=== PATIENT | female | born 1950 | race Caucasian/White ===

== ENCOUNTER 2016-11-11 00:22 | Inpatient (IN) | payer OTHER ==
--- NOTE | ~2016-11-11 | HP ---
Unit #: [id number] #: [id number] Patient: TIANA DEL ANGEL [id number] [address] [place], [place] [address] [id number] I MR#: [id number] NAME: TIANA DEL ANGEL. ROOM: 471 Age: 66 Sex: F Admission Date: 11/11/2016 : 1950 Attending Physician: Gregorio Durham M.D. Primary Care Physician: April Delaney A.P.R.N. HISTORY AND PHYSICAL DIAGNOSIS ON ADMISSION Left hip fracture. HISTORY OF PRESENT ILLNESS A 66-year-old patient presented to [facility] with left hip fracture. Patient just came out of recovery and is drowsy and not able to provide history. There is no one accompanying patient. Therefore, history was obtained from ER records and staff. Patient apparently slipped while walking with cane and fell down two stairs. Has left hip pain. In the ER, patient was diagnosed with left hip fracture. As per the ER notes, there was no history of head injury. Patient was seen by ortho in consultation who has performed left hip IM nailing. As patient is drowsy, not able to obtain review of systems. PAST MEDICAL HISTORY 1. History of depression. 2. Hypertension. 3. Hypothyroidism. 4. Hyperlipidemia. 5. History of drug abuse. 6. History of L1 compression fracture in past. PAST SURGICAL HISTORY 1. Tubal ligation and reversal. 2. Hysterectomy. 3. Hemorrhoidectomy. SOCIAL HISTORY The patient smokes one pack of cigarettes per day, and she drinks alcohol. There is history of drug abuse, as per records, but unable to verify with patient currently. ALLERGIES Codeine. HOME MEDICATIONS 1. Paxil 20 mg p.o. daily. 2. Neurontin 800 mg p.o. t.i.d. 3. Synthroid 25 mcg p.o. daily. 4. Catapres 0.1 mg p.o. b.i.d. 5. Zocor 20 mg p.o. nightly. 6. Lotensin 10/12.5 mg p.o. daily. 7. Ventolin two puffs four times a day. 8. Albuterol inhaler q.4 hours p.r.n. as per medications. Unit #: [id number] #: [id number] Patient: TIANA DEL ANGEL FAMILY HISTORY Unable to obtain as patient is currently drowsy secondary to surgery. PHYSICAL EXAMINATION GENERAL: The patient is lying comfortably in bed, is not in any obvious distress. VITAL SIGNS: Temperature is 98.4, pulse 61 per minute, respiratory rate is 18 minute, blood pressure is 123/81. HEENT: Revealed no conjunctival congestion. Sclerae is nonicteric. NECK: Supple. Trachea central. RESPIRATORY: Revealed decreased breath sounds bilaterally. No wheezes or crackles. HEART: Regular rate and rhythm. S1, S2. ABDOMEN: Soft, nontender. Bowel sounds are present in all four quadrants. EXTREMITIES: Reveal trace pedal edema. NEUROLOGIC: The patient is currently drowsy but arousable. She just came out of surgery, unable to do neuro exam. Patient does not follow commands. DIAGNOSTIC STUDIES LABORATORY: Labs on admission: Patient's creatinine is 0.8, sodium 135, potassium 3.2. WBC 6.6, hemoglobin 10.9, platelet count 180,000. IMAGING: Chest x-ray revealed mild focal infiltrate right upper lobe, shallow lung expansion. Left hip x-ray revealed intertrochanteric fracture of left paroxysmal femur. CARDIOVASCULAR: EKG revealed normal sinus rhythm. There are no acute ST changes. ASSESSMENT AND PLAN A 66-year-old patient presented to [facility] with left hip fracture. 1. Left hip fracture: The patient has underwent intramedullary nailing and has just came out of recovery. She is clinically doing better. 2. Depression: Will continue home medications. 3. Hypothyroidism: Synthroid. 4. Hypertension: Will continue home medications. 5. Hyperlipidemia: Will continue Zocor. 6. Hypokalemia: Will give patient potassium. 7. Patient's deep venous thrombosis prophylaxis as per orthopedics. Dictated by Valerie Subramanian TD: 11/11/2016 12:35 JOB #: [id number] Unit #: [id number] #: [id number] Patient: TIANA DEL ANGEL HISTORY AND PHYSICAL Page 1 of 1 X Gregorio Durham MD HISTORY AND PHYSICAL
--- NOTE | ~2016-11-11 | EKG ---
PATIENT: TIANA DEL ANGEL UNIT #: [id number] Ventricular Rate: 62 BPM Atrial Rate: 62 BPM P-R Interval: 138 ms QRS Duration: 86 ms Q-T Interval: 422 ms QTC Calculation(Bezet): 428 ms P [place]: 63 degrees Calculated R [place]: 57 degrees Calculated T [place]: 52 degrees Diagnosis Line: Normal sinus rhythm Diagnosis Line: Normal ECG Diagnosis Line: When compared with ECG of 17-JUN-2016 21:54, Diagnosis Line: Nonspecific T wave abnormality, improved in Diagnosis Line: Anterior leads Diagnosis Line: Confirmed by MAO FOSTER MD ([id number]) on Diagnosis Line: 11/11/2016 10:18:10 PM INTERPRETING MD: REA
--- NOTE | ~2016-11-11 | CR150 ---
[facility] A Service of [facility] RADIOLOGY TEXT RESULTS PATIENT: TIANA DEL ANGEL LOCATION: [place] [address] : [birth year] UNIT #: [id number] AGE: [address]: Gregorio Durham MD SEX: F ORDER DR: [id number] [facility] [address] [place], [place] [address] [id number] I MR#: [id number] Acc #: [id number] NAME: TIANA DEL ANGEL. : 1950 SEX: F STUDY DATE/TIME: 11/11/2016 1:48 UNIT: CEDOF ROOM: [id number] STUDY DESCRIPTION: CR Hip Min 2 Views Lt Attending Physician: Gregorio Durham M.D. Ordering Physician: Adrian Larsen M.D. Primary Care Physician: April Delaney A.P.R.N. MEDICAL IMAGING REPORT This report is preliminary unless electronic signature is present EXAM Pelvis and left hip series, 11/11/2016. HISTORY 66-year-old female in the ED complaining of left hip pain after a fall today. TECHNIQUE AP radiograph of the pelvis and hips was obtained along with a two-view left hip series. FINDINGS The examination shows a comminuted, mildly displaced, intertrochanteric fracture of the proximal left femur with separate greater and lesser trochanter fragments and mild varus angulation. Left femoral head and neck fragment is intact. No pelvis or acetabular fracture is visible. IMPRESSION Comminuted intertrochanteric fracture of the left proximal femur. Dictated by... Sharad Bell M.D. THIS IS AN ELECTRONICALLY VERIFIED REPORT Sharad Bell M.D. at 11/11/2016 9:56 PM RGW/anjel TD: 11/11/2016 10:52 JOB #: [id number] MEDICAL IMAGING REPORT [facility] A Service of [facility] RADIOLOGY TEXT RESULTS PATIENT: TIANA DEL ANGEL LOCATION: [facility] [id number] : [birth year] UNIT #: [id number] AGE: [address]: Gregorio Durham MD SEX: F ORDER DR: Page 1 of 1 COPY
--- NOTE | ~2016-11-11 | CR72 ---
[facility] A Service of [facility] RADIOLOGY TEXT RESULTS PATIENT: TIANA DEL ANGEL LOCATION: [place] [address] : [birth year] UNIT #: [id number] AGE: [address]: Gregorio Durham MD SEX: F ORDER DR: [id number] [facility] [address] [place], [place] [address] [id number] I MR#: [id number] Acc #: [id number] NAME: TIANA DEL ANGEL : 1950 SEX: F STUDY DATE/TIME: 11/11/2016 10:10 UNIT: [facility] ROOM: [facility] STUDY DESCRIPTION: CR Chest Single View Portable Attending Physician: Gregorio Durham M.D. Ordering Physician: Mazin Perales M.D. Primary Care Physician: April Delaney A.P.R.N. MEDICAL IMAGING REPORT This report is preliminary unless electronic signature is present EXAM Portable chest INDICATIONS Shortness of air today with history of heroin use. COMPARISON 11/11/16 FINDINGS Portable view of the chest is obtained. Heart size and vascularity are normal and the lungs are clear. There are low lung volumes. IMPRESSION No active disease. Dictated by... Mick Pierre M.D. THIS IS AN ELECTRONICALLY VERIFIED REPORT Mick Pierre M.D. at 11/12/2016 7:26 AM FEL/psc TD: 11/11/2016 17:12 JOB #: [id number] MEDICAL IMAGING REPORT Page 1 of 1 COPY
--- NOTE | ~2016-11-11 | CO ---
Unit #: [id number] #: [id number] Patient: TIANA DEL ANGEL [id number] [address] [address] [id number] I MR#: [id number] NAME: TIANA DEL ANGEL. ROOM: 47 Age: 66 Sex: F Admission Date: 11/11/2016 : 1950 Attending Physician: Gregorio Durham M.D. Primary Care Physician: April Delaney A.P.R.N. Consultation Date: 11/11/2016 CONSULTATION REPORT CHIEF COMPLAINT Left hip pain. HISTORY OF PRESENT ILLNESS Ms. Del Angel is a 66-year-old female with a history of left hip pain after a fall down 2 steps at her apartment complex and unable to ambulate, who presents to [facility]. X-rays were obtained diagnosed with a left intertrochanteric femur fracture. Orthopedics was consulted for definitive management. PAST MEDICAL HISTORY Significant for depression, hypertension, hypothyroidism, COPD. PAST SURGICAL HISTORY Positive for tubal ligation and reversal, hysterectomy, hemorrhoid surgery. HOME MEDICATIONS Reviewed. Please see the MAR. ALLERGIES Allergic to codeine. FAMILY HISTORY Reviewed and noncontributory. SOCIAL HISTORY She has a history of heroin use. Admits to alcohol and smokes tobacco since she was 22 for a positive 40-year pack history. REVIEW OF SYSTEMS Positive for left hip pain. PHYSICAL EXAMINATION GENERAL: Pleasant, female, in no acute distress. HEENT: Normocephalic and atraumatic. Extraocular movements intact. NECK: Trachea is midline. HEART: Regular rate and rhythm. CHEST: Demonstrates significant cough appears to be nonproductive. Does have some expiratory wheezes. ABDOMEN: Soft, nontender, nondistended. MUSCULOSKELETAL: Demonstrates left hip skin is intact. Does have some marked swelling present. She is able to wiggle her toes distally. She has palpable pulses distally. Range of motion is positive for a painful left hip. Unit #: [id number] #: [id number] Patient: TIANA DEL ANGEL DIAGNOSTIC STUDIES IMAGING STUDIES: X-rays of the left hip obtained through [facility]. AP and oblique views demonstrate a left displaced intertrochanteric femur fracture. IMPRESSION Left displaced intertrochanteric femur fracture. PLAN We will discuss pros and cons of surgical intervention as well as recommendations for left hip intramedullary nailing. The risks and benefits were discussed in detail including risks of infection, deep venous thrombosis, pulmonary embolism, DVT, PE, need for revision surgery, persistent pain, and . All questions were answered to her satisfaction, also malunion, nonunion and possibility of hardware were discussed. She understood and wished to proceed. Informed consent was obtained. We will proceed with surgical intervention this morning as discussed. Dictated by... Mazin Perales M.D. LENA/jarrett TD: 11/11/2016 23:05 JOB #: [id number] CONSULTATION REPORT Page 1 of 1 X Mazin Perales MD X CONSULTATION REPORT
--- NOTE | ~2016-11-11 | CR150 ---
[facility] A Service of [facility] RADIOLOGY TEXT RESULTS PATIENT: TIANA DEL ANGEL LOCATION: [place] [address] : [birth year] UNIT #: [id number] AGE: [address]: Gregorio Durham MD SEX: F ORDER DR: [id number] [facility] [address] [place], [place] [address] [id number] I MR#: [id number] Acc #: [id number] NAME: TIANA DEL ANGEL : 1950 SEX: F STUDY DATE/TIME: 11/11/2016 9:30 UNIT: [facility] ROOM: [facility] STUDY DESCRIPTION: CR Hip Min 2 Views Lt Attending Physician: Gregorio Durham M.D. Ordering Physician: Mazin Perales M.D. Primary Care Physician: April Delaney A.P.R.N. MEDICAL IMAGING REPORT This report is preliminary unless electronic signature is present EXAM Left hip HISTORY Intraoperative fixation of fracture. FINDINGS A total of 4 spot images were obtained in the OR showing a intramedullary naomi and oblique screw transfixing an intertrochanteric fracture. Fluoro time was 1.5 minutes. Dictated by... Mick Pierre M.D. THIS IS AN ELECTRONICALLY VERIFIED REPORT Mick Pierre M.D. at 11/12/2016 7:26 AM FEL/psc TD: 11/11/2016 15:59 JOB #: [id number] MEDICAL IMAGING REPORT Page 1 of 1 COPY
--- NOTE | ~2016-11-11 | CR71 ---
[facility] A Service of [facility] RADIOLOGY TEXT RESULTS PATIENT: TIANA DEL ANGEL LOCATION: [place] [address] : [birth year] UNIT #: [id number] AGE: [address]: Gregorio Durham MD SEX: F ORDER DR: [id number] [facility] [address] [place], [place] [address] [id number] I MR#: [id number] Acc #: [id number] NAME: TIANA DEL ANGEL : 1950 SEX: F STUDY DATE/TIME: 11/11/2016 1:50 UNIT: CEDOF ROOM: 25278 STUDY DESCRIPTION: CR Chest Single View Attending Physician: Gregorio Durham M.D. Ordering Physician: Adrian Larsen M.D. Primary Care Physician: April Delaney A.P.R.N. MEDICAL IMAGING REPORT This report is preliminary unless electronic signature is present EXAM Chest x-ray, 11/11/2016. HISTORY 66-year-old female in the ED with hip pain after a fall today. Intertrochanteric femur fracture. She also complains of chest pain. TECHNIQUE AP portable chest x-ray. FINDINGS The exam shows mild hazy infiltrate in the right upper lobe. No additional airspace infiltrate or pleural effusion. No visible pneumothorax. Crowding of vascular markings likely secondary shallow lung expansion. Cardiomediastinal silhouette is within normal limits. IMPRESSION Mild focal infiltrate in the right upper lobe. Shallow lung expansion. Dictated by... Sharad Bell M.D. THIS IS AN ELECTRONICALLY VERIFIED REPORT Sharad Bell M.D. at 11/11/2016 9:56 PM RGW/anjel TD: 11/11/2016 10:54 JOB #: [id number] MEDICAL IMAGING REPORT Page 1 of 1 COPY
--- NOTE | ~2016-11-11 | CO ---
Unit #: [id number] #: [id number] Patient: TIANA DEL ANGEL [id number] [address] [address] [id number] I MR#: [id number] NAME: TIANA DEL ANGEL. ROOM: 471 Age: 66 Sex: F Admission Date: 11/11/2016 : 1950 Attending Physician: Gregorio Durham M.D. Primary Care Physician: April Delaney A.P.R.N. Consultation Date: 11/13/2016 CONSULTATION REPORT REASON FOR CONSULTATION Opioid abuse, depression. HISTORY OF PRESENT ILLNESS Ms. Tiana Del Angel is a 66-year-old white female, seen on 11/13/2016 in room 471, bed 1. The patient reported that she had a left hip surgery and reported her last use of opioid was a day before coming to the hospital. The patient reports that she was using IV opioids. The patient also reported history of depression and takes Paxil. The patient is reporting restlessness of her legs, anxiety. The patient is taking Paxil 20 mg daily. Also reports she was on Neurontin. The patient currently denied any suicidal or homicidal ideation. Denied any psychotic symptom. Reported currently in lot of pain and having above-mentioned symptoms of withdrawals. The patient's vital signs; temperature 97.9, pulse 70, respiratory rate 16, blood pressure 92/52, and oxygen saturation 97%. PAST PSYCHIATRIC HISTORY Remarkable for history of depression and opioid abuse as mentioned above. No history of any suicide attempt or any inpatient treatment. According to the Our reports the patient was last admitted in 10/2011 diagnosed with bipolar mood disorder, polysubstance abuse. MEDICAL HISTORY The patient has a history of depression, hypertension, hypothyroidism, hyperlipidemia, history of drug abuse, history of L1 compression fracture. MEDICATIONS The patient is on Paxil 20 mg daily, Neurontin 800 mg t.i.d., Synthroid 25 mcg daily, Catapres, Zocor, Lotensin, Ventolin, albuterol. FAMILY HISTORY AND SOCIAL HISTORY The patient reports she has a good support system. No history of abuse. History of substance abuse as mentioned above. REVIEW OF SYSTEMS Complete review of systems unremarkable except as mentioned above. MENTAL STATUS EXAMINATION Vital signs, please see above. General appearance; the patient dressed in hospital attire, seemed to be in lot of pain, anxious, nervous. Mood and affect, sad and dysphoric. Attention span and concentration, fair. Speech, regular rate and coherent. Oriented in time, place, and person. Mood and affect, depressed. Thought process, coherent. Thought content, the patient denied any thoughts of harming self or others or any Unit #: [id number] #: [id number] Patient: TIANA DEL ANGEL hallucination. Recent and remote memory, fair. Language, intact. Fund of knowledge, fair. Insight and judgment, fair to slightly impaired. DIAGNOSES Psychiatric: Opioid use disorder, severe, F11.20; major depressive disorder, recurrent, severe, F33.2. Secondary diagnosis: Deferred. Medical diagnosis: Please refer to H and P. Stressors: Psychosocial stressors. ASSESSMENT/PLAN 1. Supportive psychotherapy and psychoeducation provided to the patient. 2. Educated about benefits and side effects of medication and course and prognosis of illness. 3. Advised to continue with current medication as mentioned above with a plan to add Requip 1 mg b.i.d. for restless legs symptoms and also Vistaril 25 mg t.i.d. for anxiety. If needed, consider further adjustment of medication. Please feel free to call telephone #[phone]. Dictated by... Valerie Leyva/jarrett TD: 11/13/2016 23:48 JOB #: [id number] CONSULTATION REPORT Page 1 of 1 X Yong Self MD X CONSULTATION REPORT
--- NOTE | ~2016-11-11 | CO ---
Unit #: [id number] #: [id number] Patient: TIANA DEL ANGEL [id number] [address] [place], [place] [address] [id number] I MR#: [id number] NAME: TIANA DEL ANGEL ROOM: 471 Age: 66 Sex: F Admission Date: 11/11/2016 : 1950 Attending Physician: Gregorio Durham M.D. Primary Care Physician: April Delaney A.P.R.N. Consultation Date: 11/14/2016 CONSULTATION REPORT DISCUSSION Ms. Tiana Del Angel is a 66-year-old female, seen in room 471 bed 1 on 11/14/2016. The patient diagnosed with opioid use disorder, major depressive disorder, status post hip surgery. The patient was pleasant and cooperative. Affect bright. Reports medication helping her, improved mood, but decrease in anxiety. Denied any suicidal or homicidal ideation. Denied any psychotic symptom. Currently, on Vistaril and Requip. REVIEW OF SYSTEMS Complete review of systems unremarkable. MENTAL STATUS EXAMINATION Vital signs; temperature 97.9, pulse 72, respirations 18, blood pressure 191/62, oxygen saturation 96%. General appearance; the patient dressed casually, lying comfortably in bed in a propped up position, made good eye contact, cooperative. Attention span and concentration, fair. Speech, regular rate and coherent. Oriented in time, place, and person. Mood and affect, sad, dysphoric, but able to smile. Thought process, coherent. Thought content, the patient denied any thoughts of harming self or others or any psychotic symptom. Recent and remote memory, fair. Language, intact. Fund of knowledge, fair. Insight and judgment, fair to slightly impaired. DIAGNOSES Psychiatric: Opioid use disorder, severe, F11.20; major depressive disorder, recurrent, severe, F33.2. ASSESSMENT AND PLAN 1. Supportive psychotherapy and psychoeducation provided to the patient. 2. Educated about benefits and side effects of medication and course and prognosis of illness. Advised to continue with current medication. If needed, consider further adjustment of medication. Please feel free to call if any questions telephone #[phone]. The patient was also given crisis line #[phone] and follow up on discharge at [facility] program at [facility]. Dictated by... Valerie Leyva/jarrett TD: 11/16/2016 02:54 JOB #: [id number] Unit #: [id number] #: [id number] Patient: ZULEIMA DEL ANGELA Blank CONSULTATION REPORT Page 1 of 1 X Yong Self MD X CONSULTATION REPORT
--- NOTE | ~2016-11-11 | DS ---
Unit #: [id number] #: [id number] Patient: TIANA DEL ANGEL [id number] [address] [place], [place] [address] [id number] I MR#: [id number] NAME: TIANA DEL ANGEL. ROOM: 471 Age: 66 Sex: F Admission Date: 11/11/2016 : 1950 Discharge Date: 11/14/2016 Attending Physician: Gregorio Durham M.D. Primary Care Physician: April Delaney A.P.R.N. DISCHARGE SUMMARY DIAGNOSIS ON ADMISSION Left hip fracture. DIAGNOSES ON DISCHARGE 1. Left hip fracture, status post intramedullary nailing. 2. History of IV heroin abuse. 3. Hypertension. 4. Depression. 5. Hypothyroidism. 6. Hyperlipidemia. CONSULTATIONS 1. Dr. Mazin Perales in ortho consultation. 2. Dr. Self in psychiatry consultation. DIAGNOSTIC STUDIES LABORATORY: Patient's creatinine is 0.8, sodium 133, potassium 4.9. WBC 6, hemoglobin 7.9, platelet count 194,000. HOSPITAL COURSE A 66-year-old female was admitted to the hospital with left hip fracture. Details are as per admission H and P. Patient was seen by Dr. Perales in consultation who performed IM nailing. Patient has tolerated surgery well. Anemia: Patient will receive blood transfusion. Hemoglobin is stable. History of IV drug abuse: Patient was seen by Dr. Self in consultation. Patient is stating that she will quit using heroin. Today patient is comfortable, is not in any acute distress. RECOMMENDATIONS ON DISCHARGE Medications are: 1. Ventolin two puffs q.6 hours p.r.n. 2. Combivent Mini neb treatment q.6 hours scheduled and q.4 hours p.r.n. 3. Tylenol 500 mg p.o. q.6 hours p.r.n. 4. Lovenox 40 mg subcutaneous b.i.d. Discontinue on November 27, 2016. 5. Neurontin 800 mg p.o. t.i.d. 6. Paxil 20 mg p.o. nightly. 7. Requip 1 mg p.o. nightly. 8. Vistaril 25 mg p.o. t.i.d. 9. Nicotine patch 14 mg one patch daily. 10. Zocor 20 mg nightly. 11. Lotensin 10 mg p.o. daily. Unit #: [id number] #: [id number] Patient: TINAA DEL ANGEL 12. Clonidine 0.1 mg p.o. b.i.d. 13. Percocet 10 mg one p.o. q.4 hours p.r.n. pain. A prescription was written. 14. Synthroid 25 mcg p.o. daily. DISPOSITION The patient will be transferred to rehab. FOLLOWUP 1. The patient will follow up with [facility] on discharge from rehab for substance abuse. 2. The patient should follow up with Dr. Perales as recommended. Kindly remove patient's moses two weeks postoperatively. The plan was discussed in detail with patient who showed complete understanding. The patient will be transferred to rehab once bed is available. Dictated by... Valerie Subramanian/nisa TD: 11/14/2016 11:37 JOB #: [id number] DISCHARGE SUMMARY Page 1 of 1 X Gregorio Durham MD X DISCHARGE SUMMARY
--- NOTE | ~2016-11-11 | OR ---
Unit #: [id number] #: [id number] Patient: TIANA DEL ANGEL [id number] [address] [place], [place] [address] [id number] MR#: [id number] NAME: TIANA DEL ANGEL ROOM: 471 Date of Procedure: 11/11/2016 Admission Date: 11/11/2016 Surgeon: Mazin Perales M.D. : 1950 Attending Physician: Gregorio Durham M.D. Primary Care Physician: April Delaney A.P.R.N. OPERATIVE REPORT PREOPERATIVE DIAGNOSIS Left intertrochanteric femur fracture. POSTOPERATIVE DIAGNOSIS Left intertrochanteric femur fracture. PROCEDURE PERFORMED Left hip intramedullary nailing. [employer] None. ANESTHESIA General anesthesia. COMPLICATIONS None. COUNTS Sponge and needle counts were correct at the conclusion of the case. INDICATIONS FOR SURGERY Ms. Del Angel is a 66-year-old female with a history of heroin use, who presents to [facility] Emergency Room with intertrochanteric femur fracture after a fall down the stairs. Recommendations were made for left hip intramedullary nailing. Risks and benefits were discussed in detail including fracture, malunion, nonunion, painful hardware, need for hardware removal, DVT, PE, and . Questions were answered to her satisfaction. Informed consent was obtained and placed in chart. DESCRIPTION OF PROCEDURE After the patient was identified in the preoperative holding area, the operative site was marked in front of the patient. She was brought to the operative room for surgery and placed supine in the operating room table. General endotracheal anesthesia was placed uneventfully. Time-out procedure was performed. IV antibiotics were infused. Then, making a 2 inch incision superior to the greater trochanter was made with a #10 blade scalpel. The IT band split longitudinally in line with the incision. The sharp tipped awl was then placed in the tip of the greater trochanter and placed into the medullary canal. A ball-tipped guidewire was then placed and the trochanteric drill was then used to open up the canal proximally. Then, the Ketan cephalomedullary nail 11.5 mm diameter, 125 degrees angle Unit #: [id number] #: [id number] Patient: DEL ANGEL,TIANA K was then placed over the guidewire to the appropriate depth. Then, a stab incision was made over the lateral thigh using the outrigger guide and the threaded K-wires were placed up in the femoral head to be center to center on both AP and lateral images, it touch posterior though still within the acceptable 25 mm center to the femoral head measuring. The Razume drill was then placed up into the femoral head and then a 95 mm lag screw was then placed into the femoral head. Traction was taken off the extremity and then that was compressed against the outrigger guide. The fracture did compress quite a bit making the lag screw prominent by almost a centimeter laterally, though deemed acceptable. The set screw was placed proximally and backed off a quarter turn. Then, cortical locking screws were placed distally to make additional stab incision 4.3 drill drilling through both cortex as well as the static hole of the nail and a 30 mm length cortical screw was placed locking the nail in place distally. Final images were obtained. AP, lateral, and oblique views showed good fracture to be in safe alignment, hardware in good position. The wound was then copiously irrigated with sterile saline. 0 Vicryl was used to close the fascial layer. 2-0 Vicryl to close the deep dermis and moses to close the skin. Sterile dressing was applied. She was awakened from anesthesia and returned to recovery room in stable condition. No intraoperative complications. Dictated by... Valerie Ta/jarrett TD: 11/11/2016 11:20 JOB #: [id number] OPERATIVE REPORT Page 1 of 1 X Mazin Perales MD X PROCEDURE OPERATIVE NOTE
[~2016-11-11 00:22] MED LIST: ALBUTEROL0.83 MG/ML INH; ALBUTEROL17 GM INH; BACTRIM DS TABL1 TA1 PO; CATAPRES0.1 MG PO; CIPRO250 MG PO; CLONIDINE HCL0.1 MG PO; COMBIVENT MININEB INH; FLEXERIL PO; FLEXERIL10 MG PO; IBUPROFEN PO; LEVAQUIN250 MG PO; LEVOXYL PO; LOTENSIN HCT 11 EACH PO; NEURONTIN PO; NEURONTIN800 MG PO; NICOTINE PATCH1 EACH TD; NO MEDICATIONS; PAXIL PO; PERCOCET 10/3251 TAB PO; PREDNISONE10 MG PO; PREDNISONE10 MG/DOSE PO; PULMICORT200 MCG/AE INH; ROBAXIN500 MG PO; SIMVASTATIN20 MG PO; SYNTHROID25 MCG PO; TYLENOL #3 PO; ULTRAM PO; ZOCOR20 MG PO
[2016-11-11 01:28] LABS: BASOPHIL% 0.5 % (0-2.5); DIFF IND NO; EOSINOPHIL# 0.2 X10e3 (0-0.7); EOSINOPHIL% 2.4 % (0.0-7.0); HEMATOCRIT 32.8 % (35.0-45.0); HEMOGLOBIN 10.9 gm/dL (12.0-16.0); LYMPHOCYTE# 0.6 X10e3 (1.0-3.5); LYMPHOCYTE% 8.9 % (17.0-45.0); MEAN CELL VOLUME 86.3 FL (83-96); MEAN CORPUSCULAR HEMOGLOBIN 28.7 PG (28-34); MEAN CORPUSCULAR HGB CONC 33.3 g/dL (30-36); MEAN PLATELET VOLUME 9.5 FL (6.5-11.5); MONOCYTE# 0.5 X10e3 (0-1.0); MONOCYTE% 7.8 % (3.0-12.0); NEUTROPHIL# 5.3 X10e3 (1.5-7.1); NEUTROPHIL% 80.4 % (40-75); PLATELET COUNT 180 X10e3 (140-420); RED BLOOD COUNT 3.81 X10e (3.90-5.30); RED CELL DISTRIBUTION WIDTH 14.9 % (11.0-15.5); WHITE BLOOD COUNT 6.6 X10e3 (4.0-10.5)
[2016-11-11 01:42] LABS: INR 1.1; PARTIAL THROMBOPLASTIN TIME 27.4 SECONDS (23.5-31.3)
[2016-11-11 02:12] LABS: CALCIUM SERUM 8.8 mg/dL (8.4-10.2); CREATININE SERUM 0.8 mg/dL (0.6-1.4); POTASSIUM 3.2 mmol/L (3.5-5.1)
[2016-11-12 03:42] LABS: HEMATOCRIT 23.3 % (35.0-45.0); MEAN CELL VOLUME 88.1 FL (83-96); MEAN CORPUSCULAR HEMOGLOBIN 28.8 PG (28-34); MEAN CORPUSCULAR HGB CONC 32.7 g/dL (30-36); MEAN PLATELET VOLUME 9.5 FL (6.5-11.5); RED BLOOD COUNT 2.64 X10e (3.90-5.30); RED CELL DISTRIBUTION WIDTH 14.9 % (11.0-15.5); WHITE BLOOD COUNT 6.2 X10e3 (4.0-10.5)
[2016-11-12 03:44] LABS: HEMOGLOBIN 7.6 gm/dL (12.0-16.0)
[2016-11-12 04:24] LABS: BUN/CREATININE RATIO 21.66; CALCIUM SERUM 7.9 mg/dL (8.4-10.2); CREATININE SERUM 0.6 mg/dL (0.6-1.4); GLOM FILT RATE Estimated 96.3 mL/min (>60); POTASSIUM 4.5 mmol/L (3.5-5.1)
[2016-11-13 03:38] LABS: BASOPHIL% 0.6 % (0-2.5); EOSINOPHIL# 0.3 X10e3 (0-0.7); EOSINOPHIL% 4.8 % (0.0-7.0); HEMATOCRIT 21.1 % (35.0-45.0); LYMPHOCYTE# 0.9 X10e3 (1.0-3.5); LYMPHOCYTE% 16.3 % (17.0-45.0); MEAN CELL VOLUME 88.2 FL (83-96); MEAN CORPUSCULAR HEMOGLOBIN 28.9 PG (28-34); MEAN CORPUSCULAR HGB CONC 32.8 g/dL (30-36); MEAN PLATELET VOLUME 8.3 FL (6.5-11.5); MONOCYTE# 0.6 X10e3 (0-1.0); NEUTROPHIL# 3.7 X10e3 (1.5-7.1); NEUTROPHIL% 67.3 % (40-75); PLATELET COUNT 172 X10e3 (140-420); RED BLOOD COUNT 2.39 X10e (3.90-5.30); WHITE BLOOD COUNT 5.5 X10e3 (4.0-10.5)
[2016-11-13 03:40] LABS: DIFF IND YES; HEMOGLOBIN 6.9 gm/dL (12.0-16.0)
[2016-11-13 04:06] LABS: CALCIUM SERUM 8.1 mg/dL (8.4-10.2); CREATININE SERUM 0.8 mg/dL (0.6-1.4); POTASSIUM 4.6 mmol/L (3.5-5.1)
[2016-11-13 04:50] LABS: DIFFERENTIAL COMMENT OCC.PLTCLUMPS; PLATELET ESTIMATE NORMAL (NORMAL)
[2016-11-13 04:52] LABS: ANISOCYTOSIS MOD
[2016-11-13 04:53] LABS: OVALOCYTES PRESENT
[2016-11-14 04:57] LABS: BASOPHIL% 0.6 % (0-2.5); EOSINOPHIL# 0.4 X10e3 (0-0.7); EOSINOPHIL% 6.6 % (0.0-7.0); HEMATOCRIT 24.3 % (35.0-45.0); LYMPHOCYTE# 0.9 X10e3 (1.0-3.5); MEAN CELL VOLUME 88.5 FL (83-96); MEAN CORPUSCULAR HEMOGLOBIN 28.8 PG (28-34); MEAN CORPUSCULAR HGB CONC 32.5 g/dL (30-36); MONOCYTE# 0.7 X10e3 (0-1.0); MONOCYTE% 11.5 % (3.0-12.0); NEUTROPHIL% 66.3 % (40-75); RED BLOOD COUNT 2.75 X10e (3.90-5.30); RED CELL DISTRIBUTION WIDTH 15.1 % (11.0-15.5)
[2016-11-14 05:10] LABS: HEMOGLOBIN 7.9 gm/dL (12.0-16.0)
[2016-11-14 05:11] LABS: DIFF IND NO; PLATELET COUNT 194 X10e3 (140-420)
[2016-11-14 05:29] LABS: BUN/CREATININE RATIO 21.25; CALCIUM SERUM 8.6 mg/dL (8.4-10.2); CREATININE SERUM 0.8 mg/dL (0.6-1.4); POTASSIUM 4.9 mmol/L (3.5-5.1)
== END 2016-11-14 21:10 | DRG 481 ==
LOC: CED 00:22 → CEDOF 02:40 → CED 02:44 → CEDOF 02:44 → C4C 11:07
PROVIDERS: Emergency Medicine; Internal Medicine; Specialist
PROC: 0QH736Z Insertion of Intramedullary Internal Fixation Device into Left Upper Femur, Percutaneous Approach (ICD-10-PCS; principal; 2016-11-11 09:30)
PROC: 30233N1 Transfusion of Nonautologous Red Blood Cells into Peripheral Vein, Percutaneous Approach (ICD-10-PCS; 2016-11-13)
DX: S72.142A Displaced intertrochanteric fracture of left femur, initial encounter for closed fracture (principal); F33.2 Major depressive disorder, recurrent severe without psychotic features; F11.20 Opioid dependence, uncomplicated; E87.1 Hypo-osmolality and hyponatremia; W10.9XXA Fall (on) (from) unspecified stairs and steps, initial encounter; Y92.039 Unspecified place in apartment as the place of occurrence of the external cause; I10 Essential (primary) hypertension; E03.9 Hypothyroidism, unspecified; E78.5 Hyperlipidemia, unspecified; D64.9 Anemia, unspecified; F17.210 Nicotine dependence, cigarettes, uncomplicated; E87.6 Hypokalemia; J44.9 Chronic obstructive pulmonary disease, unspecified; Z88.5 Allergy status to narcotic agent; Z90.710 Acquired absence of both cervix and uterus; Z98.51 Tubal ligation status
CPT/HCPCS: 36415; 51702; 71010; 72170; 73502; 76000; 80048; 83735; 85025; 85027; 85610; 85730; 86850; 86900; 86901; 86923; 93005; 94640; 94664; 94760; 96374; 96375; 97110; 97116; 97162; 97530; 99285; C1713; J0690; J1170; J1650; J2250; J2270; J2405; J3010; J3475; P9016

== ENCOUNTER → 2017-01-23 | Outpatient (CLI) | payer OTHER ==
--- NOTE | ~2017-01-23 | CT98 ---
[facility] A Service of [facility] RADIOLOGY TEXT RESULTS PATIENT: TIANA COTTER LOCATION: [facility] : 54 UNIT #: [id number] AGE: [address]: April Delaney SEX: F ORDER DR: [id number] [address] [address] [id number] O MR#: [id number] Acc #: [id number] NAME: TIANA COTTER : 1950 SEX: F STUDY DATE/TIME: 01/23/2017 15:36 UNIT: [facility] ROOM: STUDY DESCRIPTION: CT Lumbar Spine Wo Cont Attending Physician: April Delaney A.P.R.N. Referring Physician: April Delaney A.P.R.N. Ordering Physician: April Delaney A.P.R.N. Primary Care Physician: April Delaney A.P.R.N. MEDICAL IMAGING REPORT This report is preliminary unless electronic signature is present. EXAM Lumbar spine CT HISTORY Low back pain for the past 4 years. Back injury 4 years ago. COMPARISON Examination from 05/05/2012 TECHNIQUE Axial images were obtained from the lower thoracic spine to the sacrum and evaluated at bone and soft tissue windows with multiplanar reformats. This CT exam was performed with one or more of the following radiation dose reduction techniques: automatic control, adjustment of mA and/or kV according to patient size, and iterative reconstruction. FINDINGS Since the previous examination the L1 compression fracture has increased in degree of collapse. There is a vertebra plana configuration. There is retropulsion of the posterior-superior margin of L1 back into the spinal canal. The degree of retropulsion is similar to the previous CT which was performed at the time of the acute injury. Angulation across the fractured level has increased. There is now an angular kyphosis between T12 and L2 that was not present before. There is progressive narrowing of the right T12-L1 facet compared to the previous examination and this facet is partially ankylosed along its superior aspect. The L1-L2 facet joints are slightly widened bilaterally. This is new since the previous exam. The L2 transverse process fracture on the left has healed. Mild degenerative changes are seen at L2-3 and L3-4. At L4-5 there is a grade 1 spondylolisthesis with advanced facet hypertrophy. The L4-5 disc shows progressive degenerative change with more disc space narrowing especially posteriorly. L5-S1 shows mild degenerative disc disease and advanced bilateral facet hypertrophy. No pars defects are noted. No new fractures [facility] A Service of [facility] RADIOLOGY TEXT RESULTS PATIENT: TIANA COTTER LOCATION: [facility] : 54 UNIT #: [id number] AGE: [address]: April Delaney SEX: F ORDER DR: are seen since previous scan. No paraspinous soft tissue masses are noted. IMPRESSION 1. Progressive collapse of L1 since the previous examination with a vertebra plana configuration and angular kyphosis from T12-L2 that is new since the previous examination. The orientation of the facets at T12-L1 and L1-L2 has changed as described above and there is partial ankylosis of the right T12-L1 facet. 2. Degenerative grade 1 spondylolisthesis at L4-5 with progression of degenerative disc disease since the previous exam. There is also degenerative disc and facet disease at L5-S1 that has progressed slightly. Dictated by... Adrian Escobedo M.D. THIS IS AN ELECTRONICALLY VERIFIED REPORT Adrian Escobedo M.D. at 01/24/2017 4:10 PM LOLITA/harmony TD: 01/24/2017 13:35 JOB #: [id number] MEDICAL IMAGING REPORT Page 1 of 1
== END | disposition home or self-care (01) ==
LOC: SCT 15:17
DX: M54.5 Low back pain (principal); M40.204 Unspecified kyphosis, thoracic region; M43.24 Fusion of spine, thoracic region; M43.16 Spondylolisthesis, lumbar region; M51.36 Other intervertebral disc degeneration, lumbar region; M51.37 Other intervertebral disc degeneration, lumbosacral region; M48.56XD Collapsed vertebra, not elsewhere classified, lumbar region, subsequent encounter for fracture with routine healing
CPT/HCPCS: 72131